=== PATIENT | female | born 1980 | race Caucasian/White ===

== ENCOUNTER → 2017-01-31 | Day surgery (SDC) | payer OTHER ==
[~2017-01-31] VITALS: Ht 165.1 cm; Wt 101.6 kg
[~2017-01-31] MED LIST: BACITRACIN PWD 50,000 UNITS VIAL As Ordered ONE; BUPIVACAINE HCL 0.5% 10 ML VIAL As Ordered ONE; EXCETAB80 PO; HYDR-3713 PO; LIDOCAINE 2% INJ 100 MG/5 ML SDV (FOR ANES.) As Ordered ONE; LIDOCAINE 2% MDV 20 ML VIAL As Ordered ONE; LOSA50TA20 PO; LR 1,000 ML IV SCH; MIDAZOLAM INJ 2 MG/2 ML VIAL (J2250) As Ordered ONE; NEOSPORIN GU IRRIG 20 ML VIAL As Ordered ONE; ONDANSETRON 4MG/2ML VIAL (J2405) As Ordered ONE; PROPOFOL 500 MG/50 ML VIAL As Ordered ONE; dexameTHASONE 4 MG/ML 1ML VIAL (J1100) As Ordered ONE; fentaNYL 100 MCG/2 ML INJECTION (J3010) As Ordered ONE
[2017-01-31 09:15] VITALS: BP 137/86
--- NOTE | 2017-01-31 12:15 | RO ---
DATE OF PROCEDURE: 01/31/2017 PREOPERATIVE DIAGNOSIS: Bilateral plantar fasciitis. POSTOPERATIVE DIAGNOSIS: Bilateral plantar fasciitis. PROCEDURE: Bilateral endoscopic plantar fascial release. SURGEON: Jeffy Cruz DPM DIRECTOR OF FIELD SALES: None. ANESTHESIA: Monitor anesthesia care with preoperative injection of 15 mL for a 1:1 mixture of 1% lidocaine plain and 0.50% Marcaine plain injected each foot. MATERIALS: #4-0 nylon. INJECTABLES: 1 mL Decadron each foot 4 mg/mL. ESTIMATED BLOOD LOSS: Minimal. COMPLICATIONS: None. CONDITION: Stable. Alexandra Goddard is a 36-year-old female who presents to [facility] with complaints of plantar fascitis to both feet. She has underwent numerous conservative treatments without resolution. She presents today for surgical correction. The patient side and site were identified and marked in the preop holding area. Consent was reviewed and obtained. All risks, complications, and alternative to the procedure were explained to the patient in detail and all questions were answered. PROCEDURE: Patient was brought to the operating room and placed on the operating room table in supine position. Monitored anesthesia care (MAC) was delivered by the anesthesia team. Preop injection of 15 mL of 1:1 mixture of 1% lidocaine plain and 0.50% Marcaine plain were injected to each foot. The patient received Ancef preoperatively. Both feet were prepped and draped in a normal sterile fashion. Tourniquets were applied to both ankles. The were inflated to 250 mL of mercury. On each foot an incision was made on the medial aspect of the heel, approximately 3 fingerbreadths from the most posterior aspect near the plantar fascia insertion with a #15 blade. A hemostat was used to palpate the plantar fascia and a trocar was inserted inferiorly to this fascia with a small incision made to the lateral aspect of the heel. The trocar was removed leaving the cannula in place. The camera was inserted through the lateral portal of the heel. Direct visualization of the fascia was obtained. A probe was used to palpate the fascia. Following this, using the plantar fascia blade, the ligament was released, approximately 2/3 from the medial side, leaving the lateral one-third intact. The site was irrigated with normal saline. The cannula was removed. The incisions were closed with #4-0 nylon, 1 mL Decadron was injected to each foot. Sterile dressings were applied. Tourniquet was deflated. The patient was brought to postanesthesia care unit (PACU) with vital signs stable and neurovascular status intact. She will be weightbearing as tolerated in postoperative shoes. She will followup in the office in two days.
== END ==
LOC: M SDC 06:00
PROVIDERS: ATTEND Podiatrist Foot & Ankle Surgery
DX: M72.2 Plantar fascial fibromatosis (principal); I10 Essential (primary) hypertension; Z79.899 Other long term (current) drug therapy

== ENCOUNTER → 2017-05-11 | Outpatient (REF) | payer OTHER ==
[~2017-05-11] MED LIST changes: -BACITRACIN PWD 50,000 UNITS VIAL As Ordered ONE; -BUPIVACAINE HCL 0.5% 10 ML VIAL As Ordered ONE; -LIDOCAINE 2% INJ 100 MG/5 ML SDV (FOR ANES.) As Ordered ONE; -LIDOCAINE 2% MDV 20 ML VIAL As Ordered ONE; -LR 1,000 ML IV SCH; -MIDAZOLAM INJ 2 MG/2 ML VIAL (J2250) As Ordered ONE; -NEOSPORIN GU IRRIG 20 ML VIAL As Ordered ONE; -ONDANSETRON 4MG/2ML VIAL (J2405) As Ordered ONE; -PROPOFOL 500 MG/50 ML VIAL As Ordered ONE; -dexameTHASONE 4 MG/ML 1ML VIAL (J1100) As Ordered ONE; -fentaNYL 100 MCG/2 ML INJECTION (J3010) As Ordered ONE
== END ==
LOC: M SFHCLERA 10:54
PROVIDERS: ATTEND Nurse Practitioner Family
DX: J02.9 Acute pharyngitis, unspecified (principal)

== ENCOUNTER → 2018-01-21 | Outpatient (REF) | payer OTHER, MEDICAID | LOC: M SFHCLERA 10:55 | DX: R30.0 Dysuria (principal) ==

== ENCOUNTER → 2019-06-08 | Outpatient (REF) | payer MEDICAID, SELFPAY ==
[~2019-06-08] MED LIST changes: -LOSA50TA20 PO; +LOSA50TA88 PO
== END ==
LOC: M SFHCLERA 11:34
PROVIDERS: ATTEND Physician Assistant
DX: J02.9 Acute pharyngitis, unspecified (principal)

== ENCOUNTER → 2020-11-30 | Outpatient (REF) | payer OTHER | LOC: M LAB REF 19:36 | PROVIDERS: ATTEND Physician Assistant | DX: J00 Acute nasopharyngitis [common cold] (principal) ==

== ENCOUNTER → 2021-05-03 | Outpatient (CLI) | payer OTHER ==
[2021-05-03 11:53] LABS: BASO % 0.3 % (0.0-1.0); EOS # 0.1 10^3/uL (0.0-0.5); EOS % 1.6 % (0.0-3.0); HEMATOCRIT 35.4 % (36.0-47.0); HEMOGLOBIN 10.7 g/dl (12.0-15.5); LYMPH # 1.5 10^3/uL (1.5-5.0); LYMPH % 20.2 % (24.0-44.0); MEAN CORPUSCULAR HEMOGLOBIN 25.1 pg (27.0-33.0); MEAN CORPUSCULAR HGB CONC 30.2 g/dl (32.0-36.5); MEAN CORPUSCULAR VOLUME 82.9 fl (80.0-96.0); MONO # 0.4 10^3/uL (0.0-0.8); MONO % 5.8 % (2.0-8.0); NEUTROPHILS # 5.5 10^3/uL (1.5-8.5); PLATELET COUNT, AUTOMATED 421 10^3/uL (150-450); RED BLOOD COUNT 4.27 10^6/uL (4.00-5.40); WHITE BLOOD COUNT 7.6 10^3/uL (4.0-10.0)
[2021-05-03 12:21] LABS: ALBUMIN 3.8 GM/DL (3.2-5.2); ALT/SGPT 20 U/L (12-78); BILIRUBIN,TOTAL 0.4 MG/DL (0.2-1.0); BLOOD UREA NITROGEN 7 MG/DL (7-18); CARBON DIOXIDE LEVEL 29 MEQ/L (21-32); CHLORIDE LEVEL 107 MEQ/L (98-107); CREATININE FOR GFR 0.62 MG/DL (0.55-1.30); GLOMERULAR FILTRATION RATE > 60.0 (>58); GLUCOSE, FASTING 108 MG/DL (70-100); LIPASE 68 U/L (73-393); POTASSIUM SERUM 3.9 MEQ/L (3.5-5.1); SODIUM LEVEL 140 MEQ/L (136-145); TOTAL PROTEIN 7.4 GM/DL (6.4-8.2)
== END ==
LOC: M LAB 11:35
PROVIDERS: ATTEND Physician Assistant
DX: R19.7 Diarrhea, unspecified (principal); R10.10 Upper abdominal pain, unspecified

== ENCOUNTER → 2022-10-01 | Outpatient (REF) | payer OTHER, MEDICAID ==
[~2022-10-01] MED LIST changes: +LOSA50TA28 PO; -LOSA50TA88 PO
== END ==
LOC: M SFHCWAGY 16:56
PROVIDERS: ATTEND Nurse Practitioner Family
DX: Z12.4 Encounter for screening for malignant neoplasm of cervix (principal)

== ENCOUNTER → 2023-11-03 | Outpatient (REF) | payer OTHER, BC | LOC: M SFHCWAGY 17:22 | PROVIDERS: ATTEND Nurse Practitioner Family | DX: Z12.4 Encounter for screening for malignant neoplasm of cervix (principal); R87.612 Low grade squamous intraepithelial lesion on cytologic smear of cervix (LGSIL) ==

== ENCOUNTER → 2024-12-06 | Outpatient (REF) | payer BC ==
[2024-12-06 18:01] LABS: APPEARANCE, URINE HAZY (CLEAR); BACTERIA, URINE AUTO 1+ (NEGATIVE); BILIRUBIN, URINE AUTO NEGATIVE (NEGATIVE); BLOOD, URINE BLOOD NEGATIVE (NEGATIVE); COLOR, URINE YELLOW (YELLOW); GLUCOSE, URINE (UA) AUTO NEGATIVE (NEGATIVE); KETONE, URINE AUTO NEGATIVE (NEGATIVE); LEUKOCYTE ESTERASE, URINE AUTO NEGATIVE (NEGATIVE); MUCUS, URINE LARGE (NEGATIVE); NITRITE, URINE AUTO NEGATIVE (NEGATIVE); PROTEIN, URINE AUTO 1+ mg/dL (NEGATIVE); RBC, URINE AUTO 2 /HPF (0-3); SPECIFIC GRAVITY URINE AUTO 1.024 (1.002-1.035); SQUAMOUS EPITHELIAL CELL UR AU 3 /HPF (0-6); UROBILINOGEN, URINE AUTO 0.2 mg/dL (0.0-2.0); WBC, URINE AUTO 3 /HPF (0-3)
== END ==
LOC: M LAB REF 17:17
PROVIDERS: ATTEND Physician Assistant
DX: N39.0 Urinary tract infection, site not specified (principal)